=== PATIENT | female | born 1985 | race Caucasian/White ===

== ENCOUNTER → 2021-01-14 | Outpatient (CLI) | payer OTHER | END | disposition home or self-care (01) | LOC: PRENATAL 08:54 | PROVIDERS: ATTEND Obstetrics & Gynecology Maternal & Fetal Medicine | DX: O34.11 Maternal care for benign tumor of corpus uteri, first trimester (principal); O36.80X1 Pregnancy with inconclusive fetal viability, fetus 1; O09.511 Supervision of elderly primigravida, first trimester; Z36.89 Encounter for other specified antenatal screening; Z3A.12 12 weeks gestation of pregnancy ==

== ENCOUNTER 2021-03-07 08:04 | Outpatient (CLI) | payer OTHER | END 2021-03-07 09:04 | disposition home or self-care (01) | LOC: PRENATAL 08:04 | PROVIDERS: ATTEND Obstetrics & Gynecology Maternal & Fetal Medicine | DX: O35.0XX1 Maternal care for (suspected) central nervous system malformation in fetus, fetus 1 (principal); O35.3XX1 Maternal care for (suspected) damage to fetus from viral disease in mother, fetus 1; O98.512 Other viral diseases complicating pregnancy, second trimester; O34.12 Maternal care for benign tumor of corpus uteri, second trimester; O09.512 Supervision of elderly primigravida, second trimester; Z36.89 Encounter for other specified antenatal screening; Z3A.19 19 weeks gestation of pregnancy ==

== ENCOUNTER 2021-06-01 12:26 | Outpatient (CLI) | payer OTHER | END 2021-06-01 14:14 | disposition home or self-care (01) | LOC: PRENATAL 12:26 | PROVIDERS: ATTEND Obstetrics & Gynecology Maternal & Fetal Medicine | DX: O26.843 Uterine size-date discrepancy, third trimester (principal); O24.410 Gestational diabetes mellitus in pregnancy, diet controlled; O34.13 Maternal care for benign tumor of corpus uteri, third trimester; O09.523 Supervision of elderly multigravida, third trimester; O35.0XX1 Maternal care for (suspected) central nervous system malformation in fetus, fetus 1; Z36.89 Encounter for other specified antenatal screening; Z3A.32 32 weeks gestation of pregnancy ==

== ENCOUNTER 2021-07-01 10:07 | Outpatient (CLI) | payer OTHER | END 2021-07-01 11:20 | disposition home or self-care (01) | LOC: PRENATAL 10:07 | PROVIDERS: ATTEND Obstetrics & Gynecology Maternal & Fetal Medicine | DX: O26.843 Uterine size-date discrepancy, third trimester (principal); O34.13 Maternal care for benign tumor of corpus uteri, third trimester; O35.0XX1 Maternal care for (suspected) central nervous system malformation in fetus, fetus 1; O09.513 Supervision of elderly primigravida, third trimester; O24.420 Gestational diabetes mellitus in childbirth, diet controlled; Z36.89 Encounter for other specified antenatal screening; Z3A.36 36 weeks gestation of pregnancy ==

== ENCOUNTER 2021-07-18 06:55 | Inpatient (IN) | payer OTHER ==
[~2021-07-18] VITALS: Ht 170.2 cm; Wt 3.2 kg
[2021-07-18] MEDS ORDERED: PRENATAL CAPLE1 EAC1 PO (09:18)
[2021-07-21] MEDS ORDERED: IBUPROFEN800 MG PO (08:58)
[2021-07-21] MEDS ORDERED: DOCUSATE SODIU100 MG PO (08:58)
[2021-07-21] MEDS ORDERED: SIMETHICONE125 M1 PO (08:58)
== END 2021-07-21 12:32 | disposition home or self-care (01) | DRG 785 ==
LOC: OB/GYN 06:55 → LDR 06:55 → O/R 11:24 → OB/GYN 11:44
PROVIDERS: ADMIT Obstetrics & Gynecology; ATTEND Obstetrics & Gynecology
PROC: 0UB70ZZ Excision of Bilateral Fallopian Tubes, Open Approach (ICD-10-PCS; 2021-07-18)
PROC: 4A1HXFZ Monitoring of Products of Conception, Cardiac Rhythm, External Approach (ICD-10-PCS; 2021-07-18)
PROC: 10D00Z1 Extraction of Products of Conception, Low, Open Approach (ICD-10-PCS; principal; 2021-07-18 07:00)
DX: O34.211 Maternal care for low transverse scar from previous cesarean delivery (principal); O24.424 Gestational diabetes mellitus in childbirth, insulin controlled; Z30.2 Encounter for sterilization; O82 Encounter for cesarean delivery without indication; N83.8 Other noninflammatory disorders of ovary, fallopian tube and broad ligament; Z3A.39 39 weeks gestation of pregnancy; Z37.0 Single live birth